=== PATIENT | male | born 2005 | race Caucasian/White ===

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

== ENCOUNTER 2024-10-28 11:58 | Outpatient (OUT) | payer OTHER, SELFPAY ==
--- OUTSIDE RECORDS SUMMARY | 2024-10-28 12:03 | XMS_ITS | CCD ---
Author Organization [place] [employer] [facility] Care Team Providers Care Clother In Name Role Phone GILMAR MOREL Referring Unavailable GILMAR MOREL Primary Care Unavailable ELEAZAR PORTILLO Attending Unavailable Cary Wright Attending Unavailable Allergies Allergy Classification Reported Allergen(s) Allergy Type Date of Onset Reaction(s) Facility (2 sources) Amoxicillin; Translations: [AMOXICILLIN] Drug Allergy 01-21-2022 [facility] Repository Results Test Name Value Interpretation Reference Range Facility Consultation Noteon 01-27-20 Consultation Note [id number]#1.00C D:127 Normal [facility] ECG 12-Leadon 01-26-2022 ECG 12-Lead [id number]#1.00C D:127 Normal [facility] Progress Noteon 01-21-2022 [employer] Technician Authentication Interface Message Text Dick Aguilera is a 16 y.o. male who is being seen today for a consultative service at the request of Gilamr Morel MD for our opinion or medical advice regarding family history of cardiac arrhythmia in his father. He is brought in by his mother who assisted in providing the history. History of Presenting Illness: Dick is a 16 yo male whose father was found to have idiopathic VT He was a part of the [employer] and when running a race, in the last portion of the race (about 2 miles) he passed out and fell to the ground. He came to on his own. 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 He was unable to have an ablation, because it was not able to be reproduced. He has a defibrillator placed. Mom unsure if he obtained genetic testing. Dick does not have a history of recurrent cyanosis, chest pain, palpitations, syncope, breathing problems, or activity intolerance. Non-Cardiac ROS: GENERAL: No weight loss or fevers. HEENT: no nasal congestion. No ear infection, or eye redness/discharge RESPIRATORY: no cough, no wheezing, or shortness of breath GI: No vomiting, diarrhea, or constipation MUSCULOSKELETAL: Negative for joint or muscle pain or swelling SKIN: Negative for lesions or rashes All other systems reviewed and are negative except as detailed above. Past Medical/Surgical History: History reviewed. No pertinent past medical history. There is no problem list on file for this patient. History reviewed. No pertinent surgical history. Medications: No current outpatient medications on file. No current facility-administered medications for this visit. Allergies Allergies Allergen Reactions Amoxicillin Hives Family History: Father - idiopathic VT with defibrillator, unsure if there has been genetic testing Maternal grandmother - bicuspid aortic valve, s/p surgery? Mom states she has had a normal echocardiogram. The family history is otherwise negative for sudden unexplained , long QT syndrome, unexplained drowning, aneurysms, heart transplantation or pacemaker requirement at a young age on the maternal or paternal side of the family. Social History: Lives at home with family. School grade: 12th, participates in Hockey, baseball and tennis Physical Examination: BP 122/73 (BP Site: Right Arm, Patient Position: Sitting, BP Cuff Size: Adult) Pulse 62 Resp 18 Ht 174 cm Wt 66.7 kg SpO2 99% BMI 22.03 kg/m GENERAL APPEARANCE: alert, in no distress SKIN: Acyanotic, no rash SKEL: No pectus HEENT: Normal sclera, moist mucus membranes. PULM: Lungs are clear to auscultation and there is no grunting, flaring or retracting CARDIAC: The precordium is normally active. No heave or thrill. The rate was regular with normal S1 and a physiologically splitting S2. No systolic, diastolic, or continuous murmurs in the supine and sitting position. No clicks, rub or gallop rhythm. ABDOMEN: Soft, non-tender with liver edge not palpable below the right costal margin EXTREMITIES: Normal upper and lower extremity pulses with no brachio-femoral delay; normal perfusion. No clubbing or peripheral edema Studies: EKG (01/21/2022): Normal sinus rhythm. Normal EKG Impression: Family history of idiopathic VT in dad No current evidence of structural, functional, or arrhythmic heart disease. - asymptomatic, normal EKG and cardiac exam Discussion: Dick is a 16 y.o. male with a family history of idiopathic VT in his father. Rome's EKG, and cardiac exam were normal. He is also asymptomatic. No current evidence of structural, functional, or arrhythmic heart disease. Based on his clinical history and assessment, I do not think any other testing is indicated at this time, and I do not think he has any increased risk of arrhythmias. I ddi recommend to the family, that it would be reasonable for dad (if not done already) obtain genetic testing to rule out an inheritable arrhthymias. If his genetic testing is positive then his children should be evaluated by genetics. There are no special diet or activity restrictions. He needs no scheduled follow-up with us, but I would be glad to see him in the future if there are any further concerns regarding his cardiovascular system. Plan: Medications: No cardiac medications SBE Prophylaxis: No Activity: No restrictions No cardiac contraindications to surgery or general anesthesia Studies pending: None Recommended dad obtain genetic testing (for arrhythmias and CPVT) and if he is positive for something specific, then his children should have genetic testing Follow up as needed only, or if new symptoms or concerns Heather Johnson, [employer]RAF[employer] DES[employer]-LOCAL DRIVER Total encounter time was 45 minutes, which includes chart review, counseling, documentation and/or coordination of care. Saw and evaluated patient in collaboration w/ Ms Johnson. Healthy 16 year old male with no history of syncope, normal exam (more content not included)... Normal [facility] Physician Referralon 022 Physician Referral [id number] CD:127 Normal [facility] Encounters Encounter Date Encounter Type Care Provider Facility Start: 04-15-2022 ambulatory [facility] Facility:Caden Cullen Start: 01-21-2022 End: 01-21-2022 ambulatory GILMAR MOREL [facility] addy Start: 08-30-2021 [facility] Facility:Caden Felix Alcazar Start: 04-09-2021 [facility] Facility:Caden [place] Ottoniel Start: 04-09-2021 [facility] Facility:Caden [place] Payers Date Payer Category Payer Unknown [id number] 1977 Unknown [id number] 1977 Unknown [id number] 1977 Unknown [id number] [employer] ( and others) [id number] Summary Purpose Family History No Family History Records FoundNo Family History Records Found Advance Directives No Advanced Directives Records FoundNo Advanced Directives Records Found Additional Source Comments (unrecognized sect ion and content) No Status Records FoundNo Status Records Found INFORMATION SOURCE (unrecogn ized section and content) DATE CREATED AUTHOR 01/27/2022 [facility] DATE CREATED AUTHOR 'S JEANNIE VOSS 04/08/[address] [facility] FOR RECORDS PERTAINING TO PATIENTS WHO ARE OR HAVE BEEN ENROLLED IN A CHEMICAL DEPENDENCY/SUBSTANCEABUSE PROGRAM, SOME INFORMATION MAY BE OMITTED. This clinical summary was aggregated from multiple sources. Caution should be exercised in using it in the provision of clinical care. This summary normalizes information from multiple sources, and as a consequence, information in this document may materially change the coding, format and clinical context of patient data. In addition, data may be omitted in some cases. CLINICAL DECISIONS SHOULD BE BASED ON THE PRIMARY CLINICAL RECORDS. [employer] [facility]. provides no warranty or guarantee of the accuracy or completeness of information in this document.
--- NOTE | 2024-10-28 12:16 | XR_ITS ---
The [address] [address] Patient Name: DICK HATCH MRN: [id number] date: 2005 Sex: M Assigned Patient Location: RAD Current Patient Location: [facility] Accession/Order Number: [id number] Exam Date: 10/28/2024 12:10 Report Date: 10/28/2024 12:56 At the request of: BRIAN SNELL DO Procedure: XR scapula RT CLINICAL HISTORY: Posterior right shoulder pain for the past 1 to 2 months. No reported injury. RIGHT SHOULDER - 3 views COMPARISON: None AP, Y and Grashey views were obtained. There is no evidence of fracture or dislocation. There are no significant soft tissue abnormalities. XR/XR scapula RT IMPRESSION: NO ACUTE BONY INJURY. RIGHT SCAPULA - 2 views COMPARISON: None AP and Y views were obtained. There is no acute fracture or dislocation. No soft tissue abnormalities are noted. IMPRESSION: NO ACUTE BONY FINDINGS. Impression dictated by: Suki Egan M.D. 10/28/2024 12:56 PM Dictation Location: [employer] Electronically authenticated by: [id number] Y Date: 10/28/2024 12:56
--- NOTE | 2024-10-28 12:16 | XR_ITS ---
The [address] [address] Patient Name: DICK HATCH MRN: [id number] date: 2005 Sex: M Assigned Patient Location: RAD Current Patient Location: [facility] Accession/Order Number: [id number] Exam Date: 10/28/2024 12:10 Report Date: 10/28/2024 12:56 At the request of: BRIAN SNELL DO Procedure: XR scapula RT CLINICAL HISTORY: Posterior right shoulder pain for the past 1 to 2 months. No reported injury. RIGHT SHOULDER - 3 views COMPARISON: None AP, Y and Grashey views were obtained. There is no evidence of fracture or dislocation. There are no significant soft tissue abnormalities. XR/XR shoulder RT min 2V IMPRESSION: NO ACUTE BONY INJURY. RIGHT SCAPULA - 2 views COMPARISON: None AP and Y views were obtained. There is no acute fracture or dislocation. No soft tissue abnormalities are noted. IMPRESSION: NO ACUTE BONY FINDINGS. Impression dictated by: Suki Egan M.D. 10/28/2024 12:56 PM Dictation Location: [employer] Electronically authenticated by: [id number] Y Date: 10/28/2024 12:56
== END 2024-10-28 11:59 | disposition home or self-care (01) ==
LOC: RAD 12:00
PROVIDERS: PCP Internal Medicine; Visit Provider Internal Medicine
DX: M25.511 Pain in right shoulder (principal)
CPT/HCPCS: 73010; 73030